=== PATIENT | male | born 1940 | race Caucasian/White ===

== ENCOUNTER 2017-12-03 16:28 | Emergency (ER) | payer OTHER ==
[~2017-12-03] VITALS: Ht 142.2 cm; Wt 36.3 kg
[2017-12-03 16:40] VITALS: Ht 142.2 cm; Wt 36.3 kg
[2017-12-03 20:01] VITALS: BP 121/53
== END 2017-12-03 20:01 | disposition home or self-care (01) ==
LOC: ED 16:28
DX: M75.101 Unspecified rotator cuff tear or rupture of right shoulder, not specified as traumatic (principal); R22.1 Localized swelling, mass and lump, neck; R22.0 Localized swelling, mass and lump, head; I10 Essential (primary) hypertension
CPT/HCPCS: J1885